=== PATIENT | male | born 1970 | race Caucasian/White ===

== ENCOUNTER 2021-02-27 09:33 | Emergency (ER) | payer BC, OTHER ==
[~2021-02-27] VITALS: Ht 182.9 cm; Wt 131.0 kg
[2021-02-27 09:40] VITALS: BP 141/76
--- NOTE | 2021-02-27 10:10 | PHYS DOC ---
Past Medical History Past Medical History: A-Fib Past Surgical History: No Surgical History Smoking Status: Never Smoker Alcohol Use: None General Adult EDM: Chief Complaint: DIZZY/LIGHT HEADED HPI: HPI: Patient is a 50 year old male with history of A. fib on dofetilide, diltiazem, DOAC who presents with a near syncopal episode. He did not eat or drink anything today. Was at work where he was moving about frequently, lifting things, moving things when he had about 10 to 15 seconds of lightheadedness. He then felt slightly weak and went down to his knees. Did not injure himself. Did not fully pass out. Had no preceding palpitations or chest pain. Did feel slightly short of breath. He has not felt this way before. He does have a history of atrial fibrillation, and was concerned that this may have returned. 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 No recent dose changes. Has been on a stable dose of dofetilide for quite some time. Review of Systems: Review of Systems: Constitutional: Denies fever or chills. [] Eyes: Denies change in visual acuity. [] HENT: Denies nasal congestion or sore throat. [] Respiratory: Denies cough or shortness of breath. [] Cardiovascular: Presyncope. Denies chest pain or edema. [] GI: Denies abdominal pain, nausea, vomiting, bloody stools or diarrhea. [] : Denies dysuria. [] Musculoskeletal: Denies back pain or joint pain. [] Integument: Denies rash. [] Neurologic: Denies headache, focal weakness or sensory changes. [] Endocrine: Denies polyuria or polydipsia. [] Lymphatic: Denies swollen glands. [] Psychiatric: Denies depression or anxiety. [] Heart Score: C/O Chest Pain: No Risk Factors: Risk Factors: DM, Current or recent (<one month) smoker, HTN, HLP, family history of CAD, obesity. Risk Scores: Score 0 - 3: 2.5% MACE over next 6 weeks - Discharge Home Score 4 - 6: 20.3% MACE over next 6 weeks - Admit for Clinical Observation Score 7 - 10: 72.7% MACE over next 6 weeks - Early Invasive Strategies Allergies: Allergies: Allergies Coded Allergies Type Severity Reaction Last Updated Verified No Known Drug Allergies 02/27/21 No Physical Exam: PE: Constitutional: Well developed, well nourished, no acute distress, non-toxic appearance. [] HENT: Normocephalic, atraumatic, bilateral external ears normal, oropharynx moist, no oral exudates, nose normal. [] Eyes: PERRLA, EOMI, conjunctiva normal, no discharge. [] Neck: Normal range of motion, no tenderness, supple, no stridor. [] Cardiovascular:Heart rate regular rhythm, no murmur [] Lungs & Thorax: Bilateral breath sounds clear to auscultation [] Abdomen: Bowel sounds normal, soft, no tenderness, no masses, no pulsatile masses. [] Skin: Warm, dry, no erythema, no rash. [] Back: No tenderness, no CVA tenderness. [] Extremities: No tenderness, no cyanosis, no clubbing, ROM intact, no edema. [] Neurologic: Alert and oriented X 3, normal motor function, normal sensory function, no focal deficits noted. [] Psychologic: Affect normal, judgement normal, mood normal. [] Current Patient Data: Vital Signs: Vital Signs Date Time Temp Pulse Resp B/P (MAP) Pulse Ox O2 Delivery O2 Flow Rate FiO2 02/27/21 09:40 98.1 66 16 141/76 (97) 98 Room Air 98.1 EKG: EKG: Sinus rhythm. Left axis deviation. Normal intervals. T wave inversion in lead III. No other Q waves, ST elevation, or ST depression to indicate ischemia. Radiology/Procedures: Radiology/Procedures: [] Course & Med Decision Making: Course & Med Decision Making Pertinent Labs and Imaging studies reviewed. (See chart for details) Patient is a 50-year-old male with history of atrial fibrillation on dofetilide, diltiazem, anticoagulation who presents with a presyncopal episode. Question whether this may have been due to overexertion in the setting of no p.o./fluid intake today. However, the patient does have risk factors for cardiac syncope with history of atrial fibrillation, currently on dofetilide. EKG with normal intervals. Sinus rhythm rate 68. He was wearing a environmental monitoring technician at the time of the event, but I do not have the ability to interrogate it. Will monitor on telemetry, check electrolytes, troponin, cell counts and discuss with cardiology. 1010 Labs reassuring. Discussed with Dr. Cm, of cardiology, and reviewed EKG, laboratory testing, and history. He confirmed that we do not have a method to interrogate the environmental monitoring technician. He did not feel that the patient required any further monitoring, and recommended discharge with outpatient cardiology follow-up and close return precautions. [id number] Dragon Disclaimer: Dragon Disclaimer: This electronic medical record was generated, in whole or in part, using a voice recognition dictation system. 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 Please eat and drink plenty of fluids. If you have recurrent symptoms you can return to the emergency department for reevaluation at any time. You develop chest pain, shortness of breath, or other new/concerning symptoms please return to the ED. SULEMAN TURNER MD Feb 27, 2021 10:10
[2021-02-27 10:23] LABS: BASO % 1 % (0-3); EOS # 0.1 x10^3/uL (0.0-0.7); EOS % 2 % (0-3); HEMOGLOBIN 15.1 g/dL (13.0-17.5); LYMPH # 1.2 x10^3/uL (1.0-4.8); LYMPH % 20 % (24-48); MEAN CORPUSCULAR HEMOGLOBIN 30 pg (25-35); MEAN CORPUSCULAR HGB CONC 34 g/dL (31-37); MEAN CORPUSCULAR VOLUME 88 fL (79-100); MONO # 0.6 x10^3/uL (0.0-1.1); MONO % 10 % (0-9); NEUT # 4.3 x10^3/uL (1.8-7.7); NEUT % 68 % (31-73); PLATELET COUNT 153 x10^3/uL (140-400); RED BLOOD COUNT 5.01 x10^6/uL (4.30-5.70); RED CELL DISTRIBUTION WIDTH 13.9 % (11.5-14.5); WHITE BLOOD COUNT 6.3 x10^3/uL (4.0-11.0)
[2021-02-27 10:31] LABS: CALCIUM 8.7 mg/dL (8.5-10.1); CREATININE 1.1 mg/dL (0.7-1.3); GFR 70.3; POTASSIUM 4.1 mmol/L (3.5-5.1)
--- NOTE | 2021-02-27 19:49 | EKG ---
[facility] [address] [place] [address] Test Date: 2021-02-27 Test Time: 09:51:59 Pat Name: GARFIELD CORONA Department: Room: Gender: Promotions Representative: [id number] : 1970 Requested By: SULEMAN TURNER Order Number: [id number] Reading MD: Fernando Cm Measurements Intervals Gilman Rate: 68 P: 11 OK: 172 QRS: -9 QRSD: 96 T: 21 QT: 414 QTc: 445 Interpretive Statements SINUS RHYTHM LEFTWARD AXIS Electronically Signed On 02-28-2021 16:40:45 CDT by Fernando Cm
== END 2021-02-27 11:24 | disposition home or self-care (01) ==
LOC: ER 09:33
DX: R55 Syncope and collapse (principal); I48.91 Unspecified atrial fibrillation
CPT/HCPCS: 36415; 80048; 84484; 85025; 93005; 99284